=== PATIENT | female | born 2000 | race Caucasian/White ===

== ENCOUNTER → 2018-10-29 | Outpatient (CLI) | payer OTHER ==
--- NOTE | 2018-10-29 15:12 | Diagnostic Imaging Report ---
PROCEDURE: CT abdomen and pelvis without contrast. TECHNIQUE: Multiple contiguous axial images were obtained through the abdomen and pelvis without the use of intravenous contrast. Auto Exposure Controls were utilized during the CT exam to meet ALARA standards for radiation dose reduction. INDICATION: Nausea, vomiting, right flank pain. FINDINGS: There are no opaque kidney stones. There is no hydronephrosis and no perinephric or periureteric edema. There is a small volume of pelvic free fluid at the cul-de-sac a common finding on a physiologic basis in a female patient of this age. There is no adnexal lesion. There is no pericecal edema or inflammatory changes to suggest underlying appendicitis. There is no diverticulitis. There is no bowel obstruction. There is no pneumatosis or free gas. Liver, spleen, adrenals, pancreas, gallbladder all unremarkable. The osseous structures nonacute. IMPRESSION: 1. Unobstructed urinary tracts. No evidence for appendicitis. No bowel, biliary or urinary tract obstruction, inflammatory process or fluid collection. 2. Small volume of cul-de-sac free fluid likely physiologic, no acute or pathological finding of the study is apparent. Dictated by: Dictated on workstation # [id number]
== END ==
LOC: RAD 14:09
PROVIDERS: ATTEND Internal Medicine
DX: R10.9 Unspecified abdominal pain (principal); R11.2 Nausea with vomiting, unspecified
CPT/HCPCS: 74176

== ENCOUNTER → 2018-11-18 | Outpatient (CLI) | payer OTHER ==
--- NOTE | 2018-11-18 12:38 | Diagnostic Imaging Report ---
CLINICAL INDICATION: Patient with enlarged thyroid gland. COMPARISONS: None. FINDINGS: THYROID NODULES: There are a couple hypoechoic nodular areas in the left thyroid gland region with the largest measuring 2 mm. THYROID GLAND: Besides the thyroid nodules, the thyroid gland has normal size, shape and echogenicity. The right lobe measures 3.8 cm x 1.3 cm x 1.4 cm and the left lobe measures 4.0 cm x 0.9 cm x 1.3 cm in their three dimensions. ISTHMUS: The isthmus is unremarkable and measures 3 mm in thickness. IMPRESSION: There are a couple of small hypoechoic nodules involving the left thyroid gland with the largest measuring 2 mm. Otherwise, unremarkable ultrasound of the thyroid gland. Dictated by: Dictated on workstation # [id number]
== END ==
LOC: RAD 07:55
PROVIDERS: ATTEND Nurse Practitioner Family
DX: E04.2 Nontoxic multinodular goiter (principal)
CPT/HCPCS: 76536

== ENCOUNTER 2018-12-01 13:31 | Emergency (ER) | payer OTHER ==
[~2018-12-01] VITALS: Ht 170.2 cm; Wt 56.7 kg
[2018-12-01 13:49] LABS: BILIRUBIN,URINE NEGATIVE (NEGATIVE); CLARITY,URINE SLIGHTLY CLOUDY; COLOR,URINE YELLOW; GLUCOSE, URINE (UA) NEGATIVE (NEGATIVE); KETONES,URINE NEGATIVE (NEGATIVE); LEUKOCYTE ESTERASE ,URINE 3+ (NEGATIVE); NITRITE,URINE NEGATIVE (NEGATIVE); PH,URINE 5 (5-9); PROTEIN,URINE 2+ (NEGATIVE); UROBILINOGEN,URINE NORMAL (NORMAL)
--- OUTSIDE RECORDS SUMMARY | 2018-12-01 14:21 | XMS REPORT | CCD ---
Author Author ANDREE HICKS Organization Unknown Address [address] [facility] [email or web address] [place] [address] Care Team Providers Care Chef De Froid Name Role Phone JASBIR LEONARD MD Allergies Allergy Code Allergy Type Reaction Status No Known Drug Allergies 0 Drug allergy Active Active Medications Unknown or Not Available. Problems Unknown or Not Available. Procedures Procedure Code Procedure Type Date Esophagogastroduodenoscopy, flexible, transoral; [place] biopsy[place] 86697 CPT 12/07/2016 PATHOLOGY ORDER [id number] SNOMED CT 12/07/2016 TEST URINE [id number] SNOMED CT 12/07/2016 Results TEST URINE - Collect Date/Time: 12/07/2016 08:30 Test Name Code Test Result Test Units Test Ref Range TEST UR 2106-3 NEGATIVE N/A Function Status Unknown or Not Available. History of Immunizations Immunization Code Date MMR 03 10/16/1999 MMR 03 03/03/2003 Hep B, adolescent or pediatric 08 1998 Hep B, adolescent or pediatric 08 01/05/1999 Hep B, adolescent or pediatric 08 06/05/1999 IPV 10 01/05/1999 IPV 10 03/20/1999 IPV 10 01/15/2000 IPV 10 03/03/2003 DTaP 20 01/05/1999 DTaP 20 03/20/1999 DTaP 20 06/05/1999 DTaP 20 03/03/2003 varicella 21 10/16/1999 varicella 21 02/15/2011 DTP-Hib 22 01/15/2000 Hib (PRP-OMP) 49 01/05/1999 Hib (PRP-OMP) 49 03/20/1999 Tdap 115 02/15/2011 Pneumococcal Conjugate, unspecified formulation 152 02/19/2001 Pneumococcal Conjugate, unspecified formulation 152 04/23/2001 Plan of Treatment Unknown or Not Available. Social History Smoking Status Code Start Date End Date Never smoker [id number] Vital Signs Vital Sign Value Unit Date/Time Recent/Initial? BMI (Body Mass Index) 18.17 kg/m2 12/05/2016 11:39 Initial VS Weight Measured 116 [lb_av] 12/05/2016 11:39 Initial VS Height 67 [in_i] 12/05/2016 11:39 Initial VS BSA (Body Surface Area) 1.58 m2 12/05/2016 11:39 Initial VS Function Status Unknown or Not Available. Goals Unknown or Not Available. ASSESSMENTS Unknown or Not Available. Health Concerns Section Unknown or Not Available.
--- OUTSIDE RECORDS SUMMARY | 2018-12-01 14:21 | XMS REPORT ---
Author Author Michelle Dia [facility] Address [address] [place], [place] [id number] Care Team Providers Care Lecturer In Marketing Name Role Phone Michelle Dia PCP Unavailable Allergies and Adverse Reactions Name Reaction Notes No known drug allergy Plan of Treatment Not available. Medications Active Name Start Date Estimated Completion Date SIG Comments Ortho Tri-Cyclen (28) 0.18/0.215/0.25 mg-35 mcg (28) oral tablet take 1 tablet by oral route once daily Carafate 1 gram oral tablet take 1 tablet (1 gram) by oral route 4 times per day on an empty stomach 1 hour before meals and at bedtime for 8 weeks Protonix 40 mg oral tablet,delayed release (DR/EC) take 1 tablet (40 mg) by oral route once daily Zofran ODT oral Name Start Date Expiration Date SIG Comments amoxicillin 500 mg oral tablet 11/23/2015 12/03/2015 take 2 tablet by oral route 2 times a day for 10 days prednisone 20 mg oral tablet 11/23/2015 11/30/2015 take 1 tablet (20 mg) by oral route 2 times per day for 7 days Zyrtec 10 mg oral tablet 03/07/2016 05/06/2016 take 1 tablet (10 mg) by oral route once daily for 30 days amoxicillin 500 mg oral capsule 08/08/2016 08/18/2016 take 1 capsule (500 mg) by oral route every 12 hours for 10 days Discontinued Name Start Date Discontinued Date SIG Comments Medrol (Tad) 4 mg oral tablets,dose pack 03/07/2016 08/08/2016 take as directed Protonix 40 mg oral tablet,delayed release (DR/EC) 10/22/2016 11/19/2016 take 1 tablet (40 mg) by oral route once daily for 30 days Zantac 150 mg oral tablet 11/19/2016 01/07/2017 take 1 tablet (150 mg) by oral route 2 times per day for 30 days Problem List Not available. Vital Signs Date Time BP-Sys(mm[Hg] BP-Prachi(mm[Hg]) HR(bpm) RR(rpm) Temp WT HT HC BMI BSA BMI Percentile O2 Sat(%) 01/07/2017 9:31:00 AM 102 mmHg 68 mmHg 90 bpm 20 rpm 97.9 F 123 lbs 68 in 18.70 kg/m2 1.64 m2 14.5 % 100 % 11/27/2016 3:30:00 PM 118 mmHg 62 mmHg 86 bpm 20 rpm 116 lbs 68 in 17.6376 kg/m 1.5889 m 4.2 % 11/19/2016 4:24:00 PM 112 mmHg 66 mmHg 79 bpm 20 rpm 99.3 F 119.5 lbs 68 in 18.17 kg/m2 1.61 m2 9.1 % 100 % 11/05/2016 3:31:00 PM 102 mmHg 62 mmHg 94 bpm 20 rpm 99.4 F 125.5 lbs 68 in 19.082 kg/m 1.6526 m 19.7 % 100 % 10/22/2016 3:26:00 PM 102 mmHg 68 mmHg 81 bpm 20 rpm 99.7 F 121.25 lbs 68 in 18.44 kg/m2 1.62 m2 12.1 % 100 % 08/08/2016 2:36:00 PM 114 mmHg 68 mmHg 63 bpm 16 rpm 97.9 F 125.25 lbs 68 in 19.044 kg/m 1.651 m 20.2 % 99 % 03/07/2016 3:09:00 PM 102 mmHg 79 mmHg 16 rpm 97.9 F 128 lbs 67.5 in 19.75 kg/m2 1.66 m2 31.9 % 100 % 11/23/2015 10:43:00 AM 100 mmHg 60 mmHg 77 bpm 16 rpm 98.5 F 128.2 lbs 67.5 in 19.7824 kg/m 1.6642 m 33.8 % 99 % Social History Name Description Comments Tobacco Never smoker Alcohol Never Denies illicit substance abuse History of Procedures Date Ordered Description Order Status 08/08/2016 3:19 PM STREP A ASSAY W/OPTIC Reviewed 11/05/2016 12:00 AM COMPLETE CBC W/AUTO DIFF WBC Reviewed 11/05/2016 12:00 AM COMPREHEN METABOLIC PANEL Reviewed 11/05/2016 12:00 AM ASSAY THYROID STIM HORMONE Reviewed 11/05/2016 12:00 AM US EXAM OF HEAD AND NECK Reviewed Results Summary Date and Description Results 08/08/2016 3:19 PM STREPTOCOCCUS, GROUP A CULTURE Neg Influenza A Neg Influenza B Neg 11/05/2016 4:25 PM GLUCOSE 103.0 mg/dLSODIUM 140.0 mmol/LPOTASSIUM 3.90 mmol/LCHLORIDE 108.0 mmol/LCO2 21.0 mmol/LBUN 8.0 mg/dLCREATININE 0.80 mg/dLSGOT/AST 16.0 IU/LSGPT/ALT 15.0 IU/LALK PHOS 52.0 IU/LTOTAL PROTEIN 7.10 g/dLALBUMIN 4.10 g/dLTOTAL BILI 0.20 mg/dLCALCIUM 8.90 mg/dLAGE 16 GFR NonAA 93 GFR AA 113 eGFR >60 mL/min/1.73meGFR AA* >60 WBC 7.6 RBC 4.07 HGB 12.30 g/dLHCT 36.60 %MCV 90.0 fLMCH 30.20 pgMCHC 33.60 g/dLRDW SD 40 RDW CV 12.20 %MPV 10.80 fLPLT 213 NRBC# 0.00 NRBC% 0.0 %NEUT 65.70 %%LYMP 16.20 %%MONO 12.30 %%EOS 4.80 %%BASO 0.70 %#NEUT 4.98 #LYMP 1.23 #MONO 0.93 #EOS 0.36 #BASO 0.05 MANUAL DIFF NOT IND TSH 1.890 uIU/mL 12/07/2016 8:30 AM TEST UR NEGATIVE History Of Immunizations Name Date Admin Mfg Name Mf Code Trade Name Lot# Route Inj Vis Given Vis Pub CVX Hib 01/05/1999 Not Entered NE Not Entered Not Entered Not Entered 11/05/2016 07/08/2016 49 Hib 03/20/1999 Not Entered NE Not Entered Not Entered Not Entered 11/05/2016 07/08/2016 49 Hib 01/15/2000 Not Entered NE Not Entered Not Entered Not Entered 11/05/2016 07/08/2016 49 MMR 10/16/1999 Not Entered NE Not Entered Not Entered Not Entered 11/05/2016 07/08/2016 03 MMR 03/03/2003 Not Entered NE Not Entered Not Entered Not Entered 11/05/2016 07/08/2016 03 Varicella 10/16/1999 Not Entered NE Not Entered Not Entered Not Entered 11/05/2016 07/08/2016 21 Varicella 02/15/2011 Not Entered NE Not Entered Not Entered Not Entered 11/05/2016 07/08/2016 21 DTaP 01/05/1999 Not Entered NE Not Entered Not Entered Not Entered 11/05/2016 07/08/2016 20 DTaP 03/20/1999 Not Entered NE Not Entered Not Entered Not Entered 11/05/2016 07/08/2016 20 DTaP 06/05/1999 Not Entered NE Not Entered Not Entered Not Entered 11/05/2016 07/08/2016 20 DTaP 01/15/2000 Not Entered NE Not Entered Not Entered Not Entered 11/05/2016 07/08/2016 120 DTaP 03/03/2003 Not Entered NE Not Entered Not Entered Not Entered 11/05/2016 07/08/2016 20 Tdap 02/15/2011 Not Entered NE Not Entered Not Entered Not Entered 11/05/2016 07/08/2016 115 IPV 01/05/1999 Not Entered NE Not Entered Not Entered Not Entered 11/05/2016 07/08/2016 120 IPV 03/20/1999 Not Entered NE Not Entered Not Entered Not Entered 11/05/2016 07/08/2016 120 IPV 01/15/2000 Not Entered NE Not Entered Not Entered Not Entered 11/05/2016 07/08/2016 120 IPV 03/03/2003 Not Entered NE Not Entered Not Entered Not Entered 11/05/2016 07/08/2016 130 History of Past Illness Name Date of Onset Comments No significant medical history Acute bacterial rhinosinusitis Nov 23 2015 10:44AM Allergic rhinitis Nov 23 2015 10:44AM Tonsil stone Mar 07 2016 3:13PM Seasonal allergies Mar 07 2016 3:13PM Myalgia Aug 08 2016 2:38PM Nasal congestion Aug 08 2016 2:38PM Sore throat Aug 08 2016 2:38PM Tonsillitis Aug 08 2016 2:38PM Sinus infection Aug 08 2016 2:38PM Lymphadenopathy Aug 08 2016 2:38PM Gastroesophageal reflux disease with esophagitis Oct 22 2016 3:34PM Gastroesophageal reflux disease, esophagitis presence not specified Nov 05 2016 3:38PM Thyromegaly Nov 05 2016 3:38PM Thyromegaly Nov 05 2016 3:58PM GERD without esophagitis Nov 05 2016 3:58PM GERD with esophagitis Nov 19 2016 4:30PM Abdominal pain, epigastric Nov 28 2016 8:41AM GERD without esophagitis Jan 07 2017 9:39AM Payers Insurance Name Company Name Plan Name Plan Number Policy Number Policy Group Number Start Date [facility] [id number] N/A History of Encounters Visit Date Visit Type Provider 01/07/2017 Office visit Michelle Dia MD 12/07/2016 [facility] Arnold Pacheco MD 11/27/2016 Office visit Arnold Pacheco MD 11/19/2016 Office visit Michelle Dia MD 11/05/2016 Office visit Michelle Dia MD 10/22/2016 Office visit Michelle Dia MD 08/08/2016 Office visit Herbert Nayak APRN 03/07/2016 Office visit Jenniffer Grullon APRN 11/23/2015 Office visit Izzy Winchester APRN
--- OUTSIDE RECORDS SUMMARY | 2018-12-01 14:21 | XMS REPORT ---
Author Author Herbert Nayak Organization [facility] Address [address] [place], [place] [id number] Care Team Providers Care Credit Risk Analyst Name Role Phone Herbert Nayak PCP Unavailable Allergies and Adverse Reactions Name Reaction Notes No known drug allergy Plan of Treatment Not available. Medications Active Name Start Date Estimated Completion Date SIG Comments Ortho Tri-Cyclen (28) 0.18/0.215/0.25 mg-35 mcg (28) oral tablet take 1 tablet by oral route once daily amoxicillin 500 mg oral capsule 08/08/2016 08/18/2016 take 1 capsule (500 mg) by oral route every 12 hours for 10 days Name Start Date Expiration Date SIG Comments [...] oral route once daily for 30 days Discontinued Name Start Date Discontinued Date SIG Comments Medrol (Tad) 4 mg oral tablets,dose pack 03/07/2016 08/08/2016 take as directed Problem List Not available. Vital Signs Date Time BP-Sys(mm[Hg] BP-Prachi(mm[Hg]) HR(bpm) RR(rpm) Temp WT HT HC BMI BSA BMI Percentile O2 Sat(%) 08/08/2016 2:36:00 PM 114 mmHg 68 mmHg 63 bpm 16 rpm 97.9 F 125.25 lbs 68 in 19.04 kg/m2 1.65 m2 20.2 % 99 % 03/07/2016 3:09:00 PM 102 mmHg 79 mmHg 16 rpm 97.9 F 128 lbs 67.5 in 19.7515 kg/m 1.6629 m 31.9 % 100 % 11/23/2015 10:43:00 AM 100 mmHg 60 mmHg 77 bpm 16 rpm 98.5 F 128.2 lbs 67.5 in 19.78 kg/m2 1.66 m2 33.8 % 99 % Social History Name Description Comments Tobacco Never smoker Alcohol Never Denies illicit substance abuse History of Procedures Date Ordered Description Order Status 08/08/2016 3:19 PM STREP A ASSAY W/OPTIC Reviewed Results Summary Data and Description Results 08/08/2016 3:19 PM STREPTOCOCCUS, GROUP A CULTURE Neg Influenza A Neg Influenza B Neg History Of Immunizations Not available. History of Past Illness Name Date of [...] 2016 2:38PM Lymphadenopathy Aug 08 2016 2:38PM Payers Insurance Name Company Name Plan Name Plan Number Policy Number Policy Group Number Start Date [facility] [id number] N/A History of Encounters Visit Date Visit Type Provider 08/08/2016 Office visit Herbert Nayak MARKETING PROJECT SPECIALIST 03/07/2016 Office visit Jenniffer Grullon MARKETING PROJECT SPECIALIST 11/23/2015 Office visit Izzy Winchester MARKETING PROJECT SPECIALIST
--- OUTSIDE RECORDS SUMMARY | 2018-12-01 14:22 | XMS REPORT ---
Author Author Michelle Dia [facility] Address [address] [place], [place] [phone] Care Team Providers Care Nuisance Wildlife Control Operator Name Role Phone Michelle Dia PCP Unavailable Allergies and Adverse Reactions Name Reaction Notes No known drug allergy Plan of Treatment Planned Activity Comments Planned Date Planned Time Plan/Goal US SOFT TISSUES HEAD AND NECK 11/05/2016 12:00 AM Medications Active Name Start Date Estimated Completion Date SIG Comments Ortho Tri-Cyclen (28) 0.18/0.215/0.25 mg-35 mcg (28) oral tablet take 1 tablet by oral route once daily Protonix 40 mg oral tablet,delayed release (DR/EC) 10/22/2016 02/19/2017 take 1 tablet (40 mg) by oral route once daily for 30 days Name Start Date Expiration Date SIG [...] HC BMI BSA BMI Percentile O2 Sat(%) 11/05/2016 3:31:00 PM 102 mmHg 62 mmHg 94 bpm 20 rpm 99.4 F 125.5 lbs 68 in 19.08 kg/m2 1.65 m2 19.7 % 100 % 10/22/2016 3:26:00 PM 102 mmHg 68 mmHg 81 bpm 20 rpm 99.7 F 121.25 lbs 68 in 18.4358 kg/m 1.6244 m 12.1 % 100 % 08/08/2016 2:36:00 PM [...] Neg Influenza B Neg History Of Immunizations Name Date Admin Mfg Name Mfg Code Trade Name Lot# Route Inj Vis [...] 2016 3:38PM Thyromegaly Nov 05 2016 3:38PM Payers Insurance Name Company Name Plan Name Plan Number Policy Number Policy Group Number Start Date [facility] [id number] N/A History of Encounters Visit Date Visit Type Provider 11/05/2016 Office visit Michelle Dia MD 10/22/2016 Office visit Michelle Dia MD 08/08/2016 Office visit Herbert Nayak SHIFT LAB TECHNICIAN 03/07/2016 Office visit Jenniffer Grullon SHIFT LAB TECHNICIAN 11/23/2015 Office visit Izzy Winchester SHIFT LAB TECHNICIAN
--- OUTSIDE RECORDS SUMMARY | 2018-12-01 14:22 | XMS REPORT ---
Author Author Michelle Dia [facility] Address [address] [place], [place] [phone] Care Team Providers Care Software Sales Executive Name Role Phone Michelle Dia PCP Michelle Dia Unavailable Unavailable Allergies and Adverse Reactions Name Reaction Notes No known drug allergy Plan of Treatment Not available. Medications Active Name Start Date Estimated Completion Date SIG Comments Ortho Tri-Cyclen (28) 0.18/0.215/0.25 mg-35 mcg (28) oral tablet take 1 tablet by oral route once daily Name Start Date Expiration Date SIG Comments [...] 2 times per day for 30 days Zofran ODT oral 09/16/2017 sucralfate 1 gram oral tablet 02/04/2017 04/09/2017 TAKE ONE TABLET BY MOUTH BEFORE MEAL(S) AND AT BEDTIME DISSOLVE IN WATER amoxicillin 500 mg oral capsule 03/13/2017 04/09/2017 take 1 capsule (500 mg) by oral route every 12 hours for 10 days prednisone 50 mg oral tablet 03/13/2017 04/09/2017 take 1 tablet (50 mg) by oral route once daily for 3 days Carafate 1 gram oral tablet 04/09/2017 09/16/2017 take 1 tablet (1 gram) by oral route 4 times per day on an empty stomach 1 hour before meals and at bedtime for 8 weeks Protonix 40 mg oral tablet,delayed release (DR/EC) 04/09/2017 09/16/2017 take 1 tablet (40 mg) by oral route once daily for 30 days Problem List Description Status Onset Gastritis determined by endoscopy Active GERD (gastroesophageal reflux disease) Active Vital Signs Date Time BP-Sys(mm[Hg] BP-Prachi(mm[Hg]) HR(bpm) RR(rpm) Temp WT HT HC BMI BSA BMI Percentile O2 Sat(%) 09/16/2017 11:44:00 AM 112 mmHg 68 mmHg 92 bpm 20 rpm 97.3 F 130.375 lbs 68 in 19.82 kg/m2 1.68 m2 26.9 % 100 % 04/09/2017 1:44:00 PM 108 mmHg 62 mmHg 78 bpm 20 rpm 98.7 F 131.5 lbs 68 in 19.9943 kg/m 1.6917 m 30.5 % 100 % 03/13/2017 11:39:00 AM 116 mmHg 60 mmHg 108 bpm 16 rpm 101.6 F 128.25 lbs 68 in 19.50 kg/m2 1.67 m2 24 % 100 % 02/04/2017 9:33:00 AM 94 mmHg 68 mmHg 99 bpm 18 rpm 98.1 F 124.125 lbs 68 in 18.8729 kg/m 1.6436 m 16.3 % 95 % 01/07/2017 9:31:00 AM 102 mmHg 68 mmHg [...] US EXAM OF HEAD AND NECK Reviewed 02/04/2017 12:00 AM Sports Physical, New and Established Reviewed 03/13/2017 11:47 AM STREP A ASSAY W/OPTIC Reviewed 09/16/2017 12:00 AM X-RAY EXAM L-S SPINE 2 VWS Returned Results Summary Date and Description Results 08/08/2016 [...] MANUAL DIFF NOT IND TSH 1.890 uIU/mL 03/13/2017 11:47 AM STREPTOCOCCUS, GROUP A CULTURE Positive History Of Immunizations Name Date Admin Mfg Name Mfg Code Trade Name Lot# Route Inj Vis Given Vis Pub CVX Hib 01/05/1999 Not Entered NE Not Entered Not Entered Not Entered 11/05/2016 07/08/2017 49 Hib 03/20/1999 Not Entered NE Not Entered Not Entered Not Entered 11/05/2016 07/08/2017 49 Hib 01/15/2000 Not Entered NE Not Entered Not Entered Not Entered 11/05/2016 07/08/2017 49 MMR 10/16/1999 Not Entered NE Not Entered Not Entered Not Entered 11/05/2016 07/08/2017 03 MMR 03/03/2003 Not Entered NE Not Entered Not Entered Not Entered 11/05/2016 07/08/2017 03 Varicella 10/16/1999 Not Entered NE Not Entered Not Entered Not Entered 11/05/2016 07/08/2017 21 Varicella 02/15/2011 Not Entered NE Not Entered Not Entered Not Entered 11/05/2016 07/08/2017 21 DTaP 01/05/1999 Not Entered NE Not Entered Not Entered Not Entered 11/05/2016 07/08/2017 20 DTaP 03/20/1999 Not Entered NE Not Entered Not Entered Not Entered 11/05/2016 07/08/2017 20 DTaP 06/05/1999 Not Entered NE Not Entered Not Entered Not Entered 11/05/2016 07/08/2017 20 DTaP 01/15/2000 Not Entered NE Not Entered Not Entered Not Entered 11/05/2016 07/08/2017 120 DTaP 03/03/2003 Not Entered NE Not Entered Not Entered Not Entered 11/05/2016 07/08/2017 20 Tdap 02/15/2011 Not Entered NE Not Entered Not Entered Not Entered 11/05/2016 07/08/2017 115 IPV 01/05/1999 Not Entered NE Not Entered Not Entered Not Entered 11/05/2016 07/08/2017 120 IPV 03/20/1999 Not Entered NE Not Entered Not Entered Not Entered 11/05/2016 07/08/2017 120 IPV 01/15/2000 Not Entered NE Not Entered Not Entered Not Entered 11/05/2016 07/08/2017 120 IPV 03/03/2003 Not Entered NE Not Entered Not Entered Not Entered 11/05/2016 07/08/2017 130 History of Past Illness Name Date of Onset Comments Gastritis determined by endoscopy GERD (gastroesophageal reflux disease) Acute bacterial rhinosinusitis Nov 23 2015 10:44AM [...] GERD without esophagitis Jan 07 2017 9:39AM Encounter for sports participation examination Feb 04 2017 9:45AM Strep tonsillitis Mar 13 2017 11:47AM Sore throat Mar 13 2017 11:47AM Headache Mar 13 2017 11:47AM Myalgia Mar 13 2017 11:47AM Otalgia of both ears Mar 13 2017 11:47AM Gastritis determined by endoscopy Apr 09 2017 1:50PM GERD (gastroesophageal reflux disease) Apr 09 2017 1:50PM Sciatica of right side Sep 16 2017 11:50AM Payers Insurance Name Company Name Plan Name Plan Number Policy Number Policy Group Number Start Date [facility] [id number] N/A History of Encounters Visit Date Visit Type Provider 09/16/2017 Office visit Michelle Dia MD 04/09/2017 Office visit Michelle Dia MD 03/13/2017 Office visit Herbert Nayak APRN 02/04/2017 Office visit Izzy Winchester APRN 01/07/2017 Office visit Michelle Dia MD 12/07/2016 [facility] Arnold Pacheco MD 11/27/2016 Office visit Arnold Pacheco MD 11/19/2016 Office visit Michelle Dia MD 11/05/2016 Office visit Michelle Dia MD 10/22/2016 Office visit Michelle Dia MD 08/08/2016 Office visit Herebrt Nayak APRN 03/07/2016 Office visit Jenniffer Grullon APRN 11/23/2015 Office visit Izzy Winchester APRN
--- OUTSIDE RECORDS SUMMARY | 2018-12-01 14:22 | XMS REPORT ---
Author Author Michelle Dia [facility] Address [address] [place], [place] [phone] Care Team Providers Care Supervisor Blueprinting And Photocopy Name Role Phone Michelle Dia PCP Unavailable Allergies and Adverse Reactions Name Reaction Notes No known drug allergy Plan of Treatment Not available. Medications Active Name Start Date Estimated Completion Date SIG Comments Ortho Tri-Cyclen (28) 0.18/0.215/0.25 mg-35 mcg (28) oral tablet take 1 tablet by oral route once daily Zantac 150 mg oral tablet 11/19/2016 02/17/2017 take 1 tablet (150 mg) by oral route 2 times per day for 30 days Name Start Date Expiration [...] once daily for 30 days Problem List Not available. Vital Signs Date Time BP-Sys(mm[Hg] BP-Prachi(mm[Hg]) HR(bpm) RR(rpm) Temp WT HT HC BMI BSA BMI Percentile O2 Sat(%) 11/19/2016 4:24:00 PM 112 mmHg 66 mmHg [...] MANUAL DIFF NOT IND TSH 1.890 uIU/mL History Of Immunizations Name Date Admin Mfg [...] GERD with esophagitis Nov 19 2016 4:30PM Payers Insurance Name Company Name Plan Name Plan Number Policy Number Policy Group Number Start Date [facility] [id number] N/A History of Encounters Visit Date Visit Type Provider 11/19/2016 Office visit Michelle Dia MD 11/05/2016 Office visit Michelle Dia MD 10/22/2016 Office visit Michelle Dia MD 08/08/2016 Office visit Herbert Nayak SPINDLE SANDER 03/07/2016 Office visit Jenniffer Grullon SPINDLE SANDER 11/23/2015 Office visit Izzy Winchester SPINDLE SANDER
--- OUTSIDE RECORDS SUMMARY | 2018-12-01 14:22 | XMS REPORT ---
Author Author Michelle Dia [facility] Address [address] [place], [place] [phone] Care Team Providers Care Scientific Technical Writer Name Role Phone Michelle Dia PCP Unavailable [...] OF HEAD AND NECK Reviewed Results Summary Data and Description Results [...] GERD without esophagitis Nov 05 2016 3:58PM Payers Insurance Name Company Name Plan Name Plan Number Policy Number Policy Group Number Start Date [facility] [id number] N/A History of Encounters Visit Date Visit Type Provider 11/05/2016 Office visit Michelle Dia MD 10/22/2016 Office visit Michelle Dia MD 08/08/2016 Office visit Herbert Nayak APRN 03/07/2016 Office visit Jenniffer Grullon APRN 11/23/2015 Office visit Izzy Winchester TELEPHONE SWITCHBOARD OPERATOR
--- OUTSIDE RECORDS SUMMARY | 2018-12-01 14:22 | XMS REPORT ---
Author Author Michelle Dia [facility] Address [address] [place], [place] [id number] Care Team Providers Care Flying Teacher Name Role Phone Michelle Dia PCP Unavailable [...] HC BMI BSA BMI Percentile O2 Sat(%) 10/22/2016 3:26:00 PM 102 mmHg 68 mmHg [...] disease with esophagitis Oct 22 2016 3:34PM Payers Insurance Name Company Name Plan Name Plan Number Policy Number Policy Group Number Start Date [facility] [id number] N/A History of Encounters Visit Date Visit Type Provider 10/22/2016 Office visit Michelle Dia MD 08/08/2016 Office visit Herbert Nayak APRN 03/07/2016 Office visit Jenniffer Grullon APRN 11/23/2015 Office visit Izzy Winchester APRN
--- OUTSIDE RECORDS SUMMARY | 2018-12-01 14:23 | XMS REPORT ---
Author Author Michelle Dia [facility] Address [address] [place], [place] [address] Care Team Providers Care Architectural Practice Manager Name Role Phone Michelle Dia PCP Unavailable Allergies and Adverse Reactions Name Reaction Notes No known drug allergy Plan of Treatment Planned Activity Comments Planned Date Planned Time Plan/Goal US SOFT TISSUES HEAD AND NECK 11/05/2016 12:00 AM CBC W/ AUTO DIFF (RFLX MAN DIFF IF IND). 11/05/2016 12:00 AM COMPREHENSIVE METABOLIC PANEL 11/05/2016 12:00 AM TSH 11/05/2016 12:00 AM Medications Active Name Start [...] Policy Number Policy Group Number Start Date [facility] [id number] N/A History of Encounters Visit Date Visit Type Provider 11/05/2016 Office visit Michelle Dia MD 10/22/2016 Office visit Michelle Dia MD 08/08/2016 Office visit Herbert Nayak APRN 03/07/2016 Office visit Jenniffer Grullon FILM EXAMINER 11/23/2015 Office visit Izzy Winchester APRN
--- OUTSIDE RECORDS SUMMARY | 2018-12-01 14:23 | XMS REPORT ---
Author Author Izzy Winchester [facility] Address [address] [place], [place] [address] Care Team Providers Care Bottle Capper Name Role Phone Izzy Winchester PCP Unavailable Allergies and Adverse Reactions Name Reaction Notes No known drug allergy Plan of Treatment Not available. Medications Active Name Start Date Estimated Completion Date SIG Comments Ortho Tri-Cyclen (28) 0.18/0.215/0.25 mg-35 mcg (28) oral tablet take 1 tablet by oral route once daily amoxicillin 500 mg oral tablet 11/23/2015 12/03/2015 take 2 tablet by oral route 2 times a day for 10 days prednisone 20 mg oral tablet 11/23/2015 11/30/2015 take 1 tablet (20 mg) by oral route 2 times per day for 7 days Problem List Not available. Vital Signs Date Time BP-Sys(mm[Hg] BP-Prachi(mm[Hg]) HR(bpm) RR(rpm) Temp WT HT HC BMI BSA BMI Percentile O2 Sat(%) 11/23/2015 10:43:00 AM 100 mmHg 60 mmHg 77 bpm 16 rpm 98.5 F 128.2 lbs 67.5 in 19.78 kg/m2 1.66 m2 33.8 % 99 % Social History Name Description Comments Tobacco Never smoker Alcohol Never Denies illicit substance abuse History of Procedures Not available. Results Summary Not available. History Of Immunizations Not available. History of Past Illness Name Date of Onset Comments No significant medical history Acute bacterial rhinosinusitis Nov 23 2015 10:44AM Allergic rhinitis Nov 23 2015 10:44AM Payers Insurance Name Company Name Plan Name Plan Number Policy Number Policy Group Number Start Date [facility] [id number] N/A History of Encounters Visit Date Visit Type Provider 11/23/2015 Office visit Izzy Winchester REACHER
--- OUTSIDE RECORDS SUMMARY | 2018-12-01 14:23 | XMS REPORT ---
Author Author Michelle Dia [facility] Address [address] [place], [place] [id number] Care Team Providers Care Facilities Maintenance Assistant Name Role Phone Michelle Dia PCP Unavailable [...] Policy Group Number Start Date [facility] [id number] N/A History of Encounters Visit Date Visit Type Provider 10/22/2016 Office visit Michelle Dia MD 08/08/2016 Office visit Herbert Nayak APRN 03/07/2016 Office visit Jenniffer Grullon APRN 11/23/2015 Office visit Izzy Winchester APRN
--- OUTSIDE RECORDS SUMMARY | 2018-12-01 14:23 | XMS REPORT ---
Author Author Arnold Pacheco [facility] Address [address] [place], [place] [phone] Care Team Providers Care Superannuation Clerk Name Role Phone Arnold Pacheco PCP Unavailable Allergies and Adverse Reactions Name [...] HC BMI BSA BMI Percentile O2 Sat(%) 11/27/2016 3:30:00 PM 118 mmHg 62 mmHg 86 bpm 20 rpm 116 lbs 68 in 17.64 kg/m2 1.59 m2 4.2 % 11/19/2016 4:24:00 PM 112 mmHg 66 mmHg 79 bpm 20 rpm 99.3 F 119.5 lbs 68 in 18.1697 kg/m 1.6126 m 9.1 % 100 % 11/05/2016 3:31:00 PM [...] Abdominal pain, epigastric Nov 28 2016 8:41AM Payers Insurance Name Company Name Plan Name Plan Number Policy Number Policy Group Number Start Date [facility] [id number] N/A History of Encounters Visit Date Visit Type Provider 11/27/2016 Office visit Arnold Pacheco MD 11/19/2016 Office visit Michelle Dia MD 11/05/2016 Office visit Michelle Dia MD 10/22/2016 Office visit Michelle Dia MD 08/08/2016 Office visit Herbert Nayak RN URGENT CARE 03/07/2016 Office visit Jenniffer Grullon APRN 11/23/2015 Office visit Izzy Winchester APRN
--- OUTSIDE RECORDS SUMMARY | 2018-12-01 14:24 | XMS REPORT ---
Author Author Michelle Dia [facility] Address [address] [place], [place] [id number] Care Team Providers Care Registered Travel Nurse Name Role Phone Michelle Dia PCP Unavailable Michelle Dia Unavailable Allergies and Adverse Reactions Name Reaction Notes No known drug allergy Plan of Treatment Not available. Medications Active Name Start Date Estimated Completion Date SIG Comments Ortho Tri-Cyclen (28) 0.18/0.215/0.25 mg-35 mcg (28) oral tablet take 1 tablet by oral route once daily Zofran ODT oral Carafate 1 gram oral tablet 04/09/2017 take 1 tablet (1 gram) by oral route 4 times per day on an empty stomach 1 hour before meals and at bedtime for 8 weeks Protonix 40 mg oral tablet,delayed release (DR/EC) 04/09/2017 take 1 tablet (40 mg) by oral [...] 2 times per day for 30 days sucralfate 1 gram oral tablet 02/04/2017 04/09/2017 TAKE ONE TABLET BY MOUTH BEFORE MEAL(S) AND AT BEDTIME DISSOLVE IN WATER amoxicillin 500 mg oral capsule 03/13/2017 04/09/2017 take 1 capsule (500 mg) by oral route every 12 hours for 10 days prednisone 50 mg oral tablet 03/13/2017 04/09/2017 take 1 tablet (50 mg) by oral route once daily for 3 days Problem List Description Status Onset Gastritis determined by endoscopy Active GERD (gastroesophageal reflux disease) Active Vital Signs Date Time BP-Sys(mm[Hg] BP-Prachi(mm[Hg]) HR(bpm) RR(rpm) Temp WT HT HC BMI BSA BMI Percentile O2 Sat(%) 04/09/2017 1:44:00 PM 108 mmHg 62 mmHg 78 bpm 20 rpm 98.7 F 131.5 lbs 68 in 19.99 kg/m2 1.69 m2 30.5 % 100 % 03/13/2017 11:39:00 AM 116 mmHg 60 mmHg 108 bpm 16 rpm 101.6 F 128.25 lbs 68 in 19.5001 kg/m 1.6706 m 24 % 100 % 02/04/2017 9:33:00 AM 94 mmHg 68 mmHg 99 bpm 18 rpm 98.1 F 124.125 lbs 68 in 18.87 kg/m2 1.64 m2 16.3 % 95 % 01/07/2017 9:31:00 AM 102 mmHg 68 mmHg 90 bpm 20 rpm 97.9 F 123 lbs 68 in 18.7019 kg/m 1.6361 m 14.5 % 100 % 11/27/2016 3:30:00 PM [...] 11:47 AM STREP A ASSAY W/OPTIC Reviewed Results Summary Date and Description Results [...] (gastroesophageal reflux disease) Apr 09 2017 1:50PM Payers Insurance Name Company Name Plan Name Plan Number Policy Number Policy Group Number Start Date [facility] [id number] N/A History of Encounters Visit Date Visit Type Provider 04/09/2017 Office visit Michelle Dia MD 03/13/2017 Office visit Herbert Nayak APRN 02/04/2017 Office visit Izzy Winchester UNIFORM ROOM ATTENDANT 01/07/2017 Office visit Michelle Dia MD 12/07/2016 [facility] Arnold Pacheco MD 11/27/2016 Office visit Arnold Pacheco MD 11/19/2016 Office visit Michelle Dia MD 11/05/2016 Office visit Michelle Dia MD 10/22/2016 Office visit Michelle Dia MD 08/08/2016 Office visit Herbert Nayak UNIFORM ROOM ATTENDANT 03/07/2016 Office visit Jenniffer Grullon UNIFORM ROOM ATTENDANT 11/23/2015 Office visit Izzy Winchester APRN
--- OUTSIDE RECORDS SUMMARY | 2018-12-01 14:24 | XMS REPORT ---
Author Author Herbert Nayak Organization [facility] Address [address] [place], [place] [phone] Care Team Providers Care Retention Manager Name Role Phone Herbert Nayak PCP Unavailable Michelle Dia Unavailable Unavailable Allergies and Adverse [...] ODT oral Carafate 1 gram oral tablet 02/01/2017 05/24/2017 take 1 tablet (1 gram) by oral route 4 times per day on an empty stomach 1 hour before meals and at bedtime for 8 weeks sucralfate 1 gram oral tablet 02/04/2017 TAKE ONE TABLET BY MOUTH BEFORE MEAL(S) AND AT BEDTIME DISSOLVE IN WATER amoxicillin 500 mg oral capsule 03/13/2017 take 1 capsule (500 mg) by oral route every 12 hours for 10 days prednisone 50 mg oral tablet 03/13/2017 take 1 tablet (50 mg) by oral route once daily for 3 days Name Start Date Expiration Date SIG [...] per day for 30 days Problem List Description Status Onset Gastritis determined by endoscopy Active GERD (gastroesophageal reflux disease) Active Vital Signs Date Time BP-Sys(mm[Hg] BP-Prachi(mm[Hg]) HR(bpm) RR(rpm) Temp WT HT HC BMI BSA BMI Percentile O2 Sat(%) 03/13/2017 11:39:00 AM 116 mmHg 60 mmHg [...] of both ears Mar 13 2017 11:47AM Payers Insurance Name Company Name Plan Name Plan Number Policy Number Policy Group Number Start Date [facility] [id number] N/A History of Encounters Visit Date Visit Type Provider 03/13/2017 Office visit Herbert Nayak PHYS ASST 02/04/2017 Office visit Izzy Winchester PHYS ASST 01/07/2017 Office visit Michelle Dia MD 12/07/2016 [facility] Arnold Pacheco MD 11/27/2016 Office visit Arnold Pacheco MD 11/19/2016 Office visit Michelle Dia MD 11/05/2016 Office visit Michelle Dia MD 10/22/2016 Office visit Michelle Dia MD 08/08/2016 Office visit Herbert Nayak PHYS ASST 03/07/2016 Office visit Jenniffer Grullon APRN 11/23/2015 Office visit Izzy Winchester APRN
--- OUTSIDE RECORDS SUMMARY | 2018-12-01 14:25 | XMS REPORT ---
Author Author Michelle Dia [facility] Address [address] [place], [place] [phone] Care Team Providers Care Senior Health Educator Name Role Phone Michelle Dia PCP Unavailable [...] A ASSAY W/OPTIC Reviewed 11/05/2016 12:00 AM US EXAM OF HEAD AND NECK Returned 11/05/2016 12:00 AM COMPLETE CBC W/AUTO DIFF WBC Reviewed 11/05/2016 12:00 AM COMPREHEN METABOLIC PANEL Reviewed 11/05/2016 12:00 AM ASSAY THYROID STIM HORMONE Reviewed Results Summary Data and Description Results [...] Policy Number Policy Group Number Start Date [facility] [id number] N/A History of Encounters Visit Date Visit Type Provider 11/05/2016 Office visit Michelle Dia MD 10/22/2016 Office visit Michelle Dia MD 08/08/2016 Office visit Herbert Nayak APRN 03/07/2016 Office visit Jenniffer Grullon APRN 11/23/2015 Office visit Izzy Winchester ESTATE MANAGER
--- OUTSIDE RECORDS SUMMARY | 2018-12-01 14:25 | XMS REPORT ---
Author Author Jenniffer Grullon [facility] Address [address] [place], [place] [address] Care Team Providers Care Animal Care Service Worker Name Role Phone Jenniffer Grullon PCP Unavailable Allergies and Adverse Reactions Name Reaction Notes No known drug allergy Plan of Treatment Not available. Medications Active Name Start Date Estimated Completion Date SIG Comments Ortho Tri-Cyclen (28) 0.18/0.215/0.25 mg-35 mcg (28) oral tablet take 1 tablet by oral route once daily Zyrtec 10 mg oral tablet 03/07/2016 05/06/2016 take 1 tablet (10 mg) by oral route once daily for 30 days Medrol (Tad) 4 mg oral tablets,dose pack 03/07/2016 take as directed Name Start Date Expiration Date SIG Comments [...] HC BMI BSA BMI Percentile O2 Sat(%) 03/07/2016 3:09:00 PM 102 mmHg 79 mmHg [...] 3:13PM Seasonal allergies Mar 07 2016 3:13PM Payers Insurance Name Company Name Plan Name Plan Number Policy Number Policy Group Number Start Date [facility] [id number] N/A History of Encounters Visit Date Visit Type Provider 03/07/2016 Office visit Jenniffer Grullon APRN 11/23/2015 Office visit Izzy Winchester APRN
--- OUTSIDE RECORDS SUMMARY | 2018-12-01 14:25 | XMS REPORT ---
Author Author Michelle Dia [facility] Address [address] [place], [place] [address] Care Team Providers Care Deicer Inspector Electric Name Role Phone Michelle Dia PCP Michelle Dia Unavailable Unavailable Allergies and Adverse Reactions Name Reaction Notes No known drug allergy Plan of Treatment Planned Activity Comments Planned Date Planned Time Plan/Goal Lumbar Spine 2-3 Views - Main 09/16/2017 12:00 AM Medications Active Name Start Date [...] Policy Number Policy Group Number Start Date [facility] [id number] N/A History of Encounters Visit Date Visit Type Provider 09/16/2017 Office visit Michelle Dia MD 04/09/2017 Office visit Michelle Dia MD 03/13/2017 Office visit Herbert Nayak APRN 02/04/2017 Office visit Izzy Winchester APRN 01/07/2017 Office visit Michelle Dia MD 12/07/2016 [facility] Arnold Pacheco MD 11/27/2016 Office visit Arnold Pacheco MD 11/19/2016 Office visit Michelle Dia MD 11/05/2016 Office visit Michelle Dia MD 10/22/2016 Office visit Michelle Dia MD 08/08/2016 Office visit Herbert Nayak APRN 03/07/2016 Office visit Jenniffer Grullon APRN 11/23/2015 Office visit Izzy Winchester APRN
--- OUTSIDE RECORDS SUMMARY | 2018-12-01 14:26 | XMS REPORT | Continuity of Care Document ---
Author Author [facility] Organization [facility] Address [facility] [address] [place] [address] Phone Unavailable Support Name Relationship Address Phone VIRA CHAMPION D.O. Caregiver [address] [place] [address] ZAMZAM GUILLEN MD Caregiver [address] [place] [address] Unavailable SARAH FELIPE Next Of Kin [address] [place], [place] [address] Insurance Providers Payer Name Policy Number Subscriber Name Relationship [facility] [id number] Cornell Jarvis 31 Father Advance Directives Directive Response Recorded Date/Time Do you have an Advanced Directive? No 04/01/07 9:18am Advance Directives No 08/14/16 7:30pm Living Will No 08/14/16 7:30pm Health Care Proxy No 08/14/16 7:30pm Power of Heavy Equipment Sales Manager for Health Care No 08/14/16 7:30pm Organ, Tissue, or Eye Donor No 08/14/16 7:30pm Do you have a signed organ donor card? No 08/14/16 7:30pm Chief Complaint and Reason for Visit Chief Complaint SHOULDER INJURY Reason for Visit [id number] Problems Active Problems Medical Problem Onset Date Status Acromioclavicular sprain Unknown Acute Medications Current Home Medications Medication Dose Units Route Directions Days/Qty Instructions Start Date Acetaminophen/Hydrocodone Bitart 1 Tab 1 - 2 Tab Oral Every 4-6 Hrs As Needed Pain 30 12/22/12 Social History Social History Problem Response Recorded Date/Time Smoking Status Never smoker 12/22/2012 9:06pm Query Response Start Date Stop Date Smoking Status Never smoker Hospital Discharge Instructions No hospital discharge instructions. Plan of Care Discharge Date 08/14/16 9:10pm Condition at Discharge Stable Instructions/Education Provided Acromioclavicular Separation (ED) Prescriptions See Medication Section Referrals CHAMPIONVIRA CASTILLO D.O., KALAPURAKKAL SUNIL M.D. - 1 Week Functional Status Query Response Date Recorded Rosalio Coma Scale Total 15 August 14, 2016 7:40pm Patient Behavior Cooperative August 14, 2016 7:40pm Allergies, Adverse Reactions, Alerts Allergen Type Severity Reaction Status Last Updated NO KNOWN ALLERGIES Allergy Unknown Active 08/15/16 Immunizations Name Given Type Hx Diphtheria, Pertussis, Tetanus Vaccination Up To Date Historical Hx Influenza Vaccination No Historical Hx Pneumococcal Vaccination No Historical Vital Signs Acute Vital Signs Vital Response Date/Time Temperature (Fahrenheit) 98.6 degrees F (97.6 - 99.5) 08/14/2016 9:02pm Temperature Source Temporal Artery 08/14/2016 9:02pm Pulse Rate (adult) 75 bpm (60 - 90) 08/14/2016 9:02pm Respiratory Rate 18 bpm (12 - 24) 08/14/2016 9:02pm Blood Pressure 126/75 mm Hg 08/14/2016 9:02pm O2 Sat by Pulse Oximetry 100 % (90 - 100) 08/14/2016 9:02pm Oxygen Delivery Method 08/14/2016 9:02pm Pain Location Body Site Modifier 08/14/2016 9:00pm Pain Description 08/14/2016 9:00pm Height 5 ft 7 in Weight 125 lb Body Mass Index 19.0 kg/m^2 Results No known relevant diagnostic tests, laboratory data and/or discharge summary. Procedures Procedure Status Date Provider(s) X-ray of left shoulder, two or more views Completed 08/14/16 ZAMZAM GUILLEN MD Encounters Encounter Location Arrival/Admit Date Discharge/Depart Date Attending Provider Departed Emergency Room [place] 08/14/16 7:18pm 08/14/16 9:10pm ZAMZAM GUILLEN MD Recent Diagnosis
--- OUTSIDE RECORDS SUMMARY | 2018-12-01 14:26 | XMS REPORT ---
Author Author KIRSTEN PALACIOS Organization [employer] Address Unknown Phone Unavailable Care Team Providers Care Financial Specialist Name Role Phone KIRSTEN PALACIOS CP Unavailable Allergies, Adverse Reactions, Alerts Substance Reaction Event Type N.K.D.A. Info Not Available Non Drug Allergy Problems Problem Type Condition Code Onset Dates Condition Status Assessment Sports physical V70.3 Active Medications No Known Medications Procedures Procedure Coding System Code Date Preventive Care New Pt. Age 12-17 CPT-4 38801 Feb 05, 2015 Vital Signs Date/Time: Feb 05, 2015 Temperature 98.1 F BMIPercentile 37.58 % Weight 122 lbs Height 66 in BMI 19.69 Index Blood Pressure Diastolic 72 mmHg Blood Pressure Systolic 110 mmHg Cardiac Monitoring Heart Rate 76 bpm Wt Percentile 54.27 % Ht Percentile 77.74 % Results No Known Results Summary Purpose [employer] Submission
--- OUTSIDE RECORDS SUMMARY | 2018-12-01 14:26 | XMS REPORT ---
Author Author ELISE VINCENT [facility] Address [address] [place] [address] Care Team Providers Care Health And Safety Specialist Name Role Phone ELISE VINCENT Unavailable PROBLEMS No Known Problems ALLERGIES No Known Allergies ENCOUNTERS Encounter Location Date Diagnosis [facility] [id number] [address] Jun, Fever, unspecified fever cause R50.9 and Acute tonsillitis, unspecified etiology J03.90 [facility] [id number] [address] Jan, Routine sports physical exam Z02.5 [facility] [id number] [address] Feb, Sports physical V70.3 IMMUNIZATIONS No Known Immunizations SOCIAL HISTORY Never Assessed REASON FOR VISIT Sore throat, chills, body aches started this afternoon JStrasserRN PLAN OF CARE Activity Details Follow Up if not improving with PCP or reg follow up Reason: VITAL SIGNS Height 68 in 2018-06-21 Weight 128.4 lbs 2018-06-21 Temperature 100.6 degrees Fahrenheit 2018-06-21 Heart Rate 120 bpm 2018-06-21 Respiratory Rate 18 2018-06-21 BMI 19.52 kg/m2 2018-06-21 Blood pressure systolic 120 mmHg 2018-06-21 Blood pressure diastolic 80 mmHg 2018-06-21 MEDICATIONS Medication Instructions Dosage Frequency Start Date End Date Duration Status Amoxicillin 500 mg Orally every 8 hrs 1 tablet 8h 15 Jun, 2018 10 day(s) Active Sprintec 28 0.25-35 MG-MCG Orally Once a day 1 tablet 24h 28 day(s) Active Tylenol 8 Hour 650 MG Orally every 8 hrs 2 tablets as needed 8h Active RESULTS Name Result Date Reference Range INFLUENZA A & B (IN HOUSE) 2018-06-21 INFLUENZA A negative INFLUENZA B negative Control + Lot # [id number] Exp date 2020-08-15 STREP A (IN HOUSE) 2018-06-21 STREP A negative Control + Lot # [id number] Exp date 2018-12-05 PROCEDURES Procedure Date Ordered Result Body Site STREP A ASSAY W/OPTIC Jun 21, 2018 INFLUENZA ASSAY W/OPTIC Jun 21, 2018 INSTRUCTIONS MEDICATIONS ADMINISTERED No Known Medications MEDICAL (GENERAL) HISTORY Type Description Date Medical History L knee, torn meniscus Medical History R wrist fracture Medical History L shoulder AC separation Surgical History No know Surgical history
--- OUTSIDE RECORDS SUMMARY | 2018-12-01 14:26 | XMS REPORT ---
Author Author CJ MCCORD Organization [employer] Address Unknown Phone Unavailable Care Team Providers Care Potato Pancake Frier Name Role Phone CJ MCCORD CP Unavailable Allergies, Adverse Reactions, Alerts Substance Reaction Event Type N.K.D.A. Info Not Available Non Drug Allergy Problems Problem Type Condition Code Onset Dates Condition Status Assessment Routine sports physical exam Z02.5 Active Medications No Known Medications Procedures Procedure Coding System Code Date Office Visit, Est Pt., Level 3 CPT-4 75022 February 04, 2016 Vital Signs Date/Time: February 04, 2016 Cardiac Monitoring Heart Rate 70 bpm Weight 124 lbs Height 68 in Ht Percentile 93.36 % BMI 18.85 Index Blood Pressure Diastolic 70 mmHg Blood Pressure Systolic 112 mmHg BMIPercentile 20.1 % Wt Percentile 53.33 % Results No Known Results Summary Purpose [employer] Submission
--- OUTSIDE RECORDS SUMMARY | 2018-12-01 14:26 | XMS REPORT | Continuity of Care Document ---
Author Organization Unknown Address Unknown Allergies There is no data. Medications There is no data. Problems Date Dx Coded Attending Type Code Diagnosis Diagnosed By 10/29/2018 ZEUS BEAL MD Ot R10.9 UNSPECIFIED ABDOMINAL PAIN 10/29/2018 ZEUS BEAL MD Ot R11.2 NAUSEA WITH VOMITING, UNSPECIFIED 11/04/2018 ZEUS BEAL MD Ot R10.9 UNSPECIFIED ABDOMINAL PAIN 11/04/2018 ZEUS BEAL MD Ot R11.2 NAUSEA WITH VOMITING, UNSPECIFIED 11/17/2018 ZEUS BEAL MD Ot R10.9 UNSPECIFIED ABDOMINAL PAIN 11/17/2018 ZEUS BEAL MD Ot R11.2 NAUSEA WITH VOMITING, UNSPECIFIED 11/18/2018 ZEUS BEAL MD Ot R10.9 UNSPECIFIED ABDOMINAL PAIN 11/18/2018 ZEUS BEAL MD Ot R11.2 NAUSEA WITH VOMITING, UNSPECIFIED 11/19/2018 MARC OLMOS Ot E04.2 NONTOXIC MULTINODULAR GOITER Procedures There is no data. Results There is no data. Encounters ACCT No. Visit Date/Time Discharge Status Pt. Type Provider Facility Loc./Unit Complaint [id number] 09/16/2017 12:43:19 09/16/2017 23:59:59 [facility] Outpatient Michelle Dia [id number] 04/09/2017 14:41:33 04/09/2017 23:59:59 [facility] Outpatient Michelle Dia [id number] 03/13/2017 12:22:15 03/13/2017 23:59:59 [facility] Outpatient Herbert Nayak [id number] 02/04/2017 10:31:48 02/04/2017 23:59:59 [facility] Outpatient Izzy Winchester [id number] 01/07/2017 10:32:57 01/07/2017 23:59:59 [facility] Outpatient Michelle Dia [id number] 12/11/2016 15:10:47 12/11/2016 23:59:59 [facility] Arnold Pacheco [id number] 11/27/2016 15:47:39 11/27/2016 23:59:59 [facility] Outpatient Arnold Pacheco [id number] 11/05/2016 16:30:36 11/05/2016 23:59:59 [facility] Outpatient Michelle Dia [id number] 10/22/2016 16:23:43 10/22/2016 23:59:59 [facility] Outpatient Michelle Dia [id number] 08/08/2016 14:45:01 08/08/2016 23:59:59 [facility] Outpatient Herbert Nayak [id number] 03/07/2016 15:23:02 03/07/2016 23:59:59 [facility] Outpatient Jenniffer Grullon [id number] 11/18/2018 07:55:00 11/18/2018 23:59:59 [facility] Outpatient MARC OLMOS [facility] RAD ENLARGED THYROID [id number] 10/29/2018 14:09:00 10/29/2018 23:59:59 [facility] Outpatient EMIGDIO ROMERO, ZEUS Sanchez [facility] RAD FLANK PAIN X4 DAYS [id number] 12/01/2018 13:32:00 ACT Emergency HOMER UMANA [facility] ER STD TEST AND POSSIBLE UTI
--- OUTSIDE RECORDS SUMMARY | 2018-12-01 14:26 | XMS REPORT ---
Author Author Izzy Winchester Organization [facility] Address [address] [place], [place] [address] Care Team Providers Care Retail Zone Specialist Name Role Phone Izzy Winchester PCP Unavailable Michelle Dia Unavailable Unavailable Allergies [...] meals and at bedtime for 8 weeks Name Start Date Expiration Date SIG Comments [...] HC BMI BSA BMI Percentile O2 Sat(%) 02/04/2017 9:33:00 AM 94 mmHg 68 mmHg [...] Seasonal allergies Mar 07 2016 3:13PM Myalgia Feb 2016 2:38PM Nasal congestion Fe2016 2:38PM Sore throat Fe2016 2:38PM Tonsillitis Aug 08 2016 2:38PM Sinus [...] sports participation examination Feb 04 2017 9:45AM Payers Insurance Name Company Name Plan Name Plan Number Policy Number Policy Group Number Start Date [facility] [id number] N/A History of Encounters Visit Date Visit Type Provider 02/04/2017 Office visit Izzy Winchester BASKETBALLS AND FOOTBALLS REVERSER 01/07/2017 Office visit Michelle Dia MD 12/07/2016 [facility] Arnold Pacheco MD 11/27/2016 Office visit Arnold Pacheco MD 11/19/2016 Office visit Michelle Dia MD 11/05/2016 Office visit Michelle Dia MD 10/22/2016 Office visit Michelle Dia MD 08/08/2016 Office visit Herbert Nayak APRN 03/07/2016 Office visit Jenniffer Grullon BASKETBALLS AND FOOTBALLS REVERSER 11/23/2015 Office visit Izzy Winchester APRN
[2018-12-01 14:27] LABS: BACTERIA,URINE MODERATE /HPF; WBC,URINE 50-100 /HPF
[2018-12-01] MEDS ORDERED: CEPH-507 PO (14:42)
--- NOTE | 2018-12-01 14:43 | ED GU-Female ---
General Chief Complaint: - Urinary Stated Complaint: STD TEST AND POSSIBLE UTI Nursing Triage Note: PT ARRIVES WITH C/O BURNING AND PAIN WITH URINATION AND ABD PAIN. PT DENIES VAGINAL DISCHARGE. PT STATES THIS ALL BEGAN SATURDAY. PT CONCERN OF STD. PT DENIES N/V/D/FEVER. Nursing Sepsis Screen: No Definite Risk Source: patient Exam Limitations: no limitations History of Present Illness Date Seen by Provider: December 01, 2018 Time Seen by Provider: 13:30 Initial Comments 18 year old female who presents to the emergency room with complains of pain and burning with urination. She denies vaginal discharge. She request to be checked for STD's due to several partners. She denies symptoms or fevers. Modifying Factors: Worsens With Urinating Associated Symptoms: dysuria, urinary frequency Allergies and Home Medications Allergies Coded Allergies: No Known Drug Allergies (Unverified , 12/01/18) Home Medications Cephalexin 500 Mg Capsule, 500 MG PO TID Prescribed by: HOMER UMANA on 12/01/18 1442 Patient Home Medication List Home Medication List Reviewed: Yes Review of Systems Review of Systems Constitutional: see HPI; No chills, No fever Genitourinary: see HPI, burning, urgency All Other Systemes Reviewed Negative Unless Noted: Yes Past Ixgpagu-[id number]-Nnqlfb Hx Past Med/Social Hx: Reviewed Nursing Past Med/Soc Hx Patient Social History Recent Foreign Travel: No Contact w/Someone Who Travel: No Recent Infectious Disease Expo: Yes Physical Abuse: No Sexual Abuse: No Mistreated: No Fear: No Family Medical History Reviewed Nursing Family Hx Physical Exam Vital Signs Vital Signs - First Documented 12/01/18 13:37 Temp 97.6 Pulse 80 Resp 18 B/P (MAP) 116/74 (88) Pulse Ox 99 O2 Delivery Room Air Capillary Refill : Less Than 3 Seconds Height, Weight, BMI Height: 5'7.00" Weight: 125lbs. oz. 56.980820ba; BMI Method:Stated General Appearance: WD/WN, no apparent distress Cardiovascular: normal peripheral pulses, regular rate, rhythm, no edema, no gallop, no JVD, no murmur Respiratory: chest non-tender, lungs clear, normal breath sounds, no respiratory distress, no accessory muscle use, respiratory distress Gastrointestinal: normal bowel sounds, non tender, soft, no organomegaly, no pulsatile mass Extremities: normal capillary refill Neurologic/Psychiatric: alert, normal mood/affect, oriented x 3 Skin: normal color, warm/dry Progress/Results/Core Measures Suspected Sepsis Recent Fever Within 48 Hours: No Infection Criteria Present: Suspected New Infection New/Unexplained Altered Menta: No Sepsis Screen: No Definite Risk SIRS Temperature:97.6 Pulse: 80 Respiratory Rate: 18 Blood Pressure 116 /74 Mean: 88 Results/Orders Lab Results Laboratory Tests Test 12/01/18 13:41 Range/Units Urine Color YELLOW Urine Clarity SLIGHTLY CLOUDY Urine pH 5 5-9 Urine Specific [place] 1.020 1.016-1.022 Urine Protein 2+ H NEGATIVE Urine Glucose (UA) NEGATIVE NEGATIVE Urine Ketones NEGATIVE NEGATIVE Urine Nitrite NEGATIVE NEGATIVE Urine Bilirubin NEGATIVE NEGATIVE Urine Urobilinogen NORMAL NORMAL MG/DL Urine Leukocyte Esterase 3+ H NEGATIVE Urine RBC (Auto) 4+ H NEGATIVE Urine RBC 2-5 H /HPF Urine WBC 50-100 H /HPF Urine Squamous Epithelial Cells NONE /HPF Urine Crystals NONE /LPF Urine Bacteria MODERATE H /HPF Urine Casts NONE /LPF Urine Mucus NEGATIVE /LPF Urine Culture Indicated YES Micro Results Microbiology 12/01/18 Urine Culture - Preliminary, Resulted Escherichia coli Strep agalactiae Group B My Orders Orders - HOMER UAMNA Ua Culture If Indicated (12/01/18 13:33) Neis Leo Dna Urine Test (12/01/18 13:33) Chlamydia Trachomatis Urine (12/01/18 13:33) Urine Bedside (12/01/18 13:43) Urine Culture (12/01/18 13:41) Ceftriaxone For Im Use (Rocephin For Im (12/01/18 14:45) Lidocaine 1% Inj 20 Ml (Xylocaine 1% Inj (12/01/18 14:45) Vital Signs/I&O Capillary Refill : Less Than 3 Seconds Blood Pressure Mean: 88 Departure Impression Primary Impression: Urinary tract infection Disposition: 01 HOME, SELF-CARE Condition: Stable/Unchanged Departure-Patient Inst. Decision time for Depature: 14:41 Referrals: NO,LOCAL PHYSICIAN (PCP/Family) Primary Care Physician Patient Instructions: Urinary Tract Infection, Adult (DC) Add. Discharge Instructions: Take medications as directed. Be sure you are drinking plenty of clear liquids to help stay hydrated and to flush out your urinary tract. Follow-up with your primary care provider within 1 week for recheck. Return back to the emergency room for worsening symptoms or concerns as needed. All discharge instructions reviewed with patient and/or family. Voiced understanding. Scripts Cephalexin (Keflex) 500 Mg Capsule 500 MG PO TID for 7 Days, #21 CAP Prov: HOMER UMANA 12/01/18 HOMER UMANA December 01, 2018 14:42
[2018-12-01] MEDS ORDERED: LIDOCAINE 1% INJ 20 ML 20 ML VIAL INJ ONE (14:45)
[2018-12-01] MEDS ORDERED: cefTRIAXone 1,000 MG/2.86 ml vial (IM ONLY) IM SCH (14:45)
[2018-12-01 15:03] VITALS: BP 116/74
[2018-12-04] MEDS ORDERED: AZIT1PAC11 PO (11:30)
== END 2018-12-01 15:01 | disposition home or self-care (01) ==
LOC: EDUNIT# 13:31 → ER 13:32
DX: N39.0 Urinary tract infection, site not specified (principal)
CPT/HCPCS: 36415; 81000; 84703; 87077; 87088; 87186; 87491; 87591; 96372; 99284

== ENCOUNTER → 2018-12-25 | Outpatient (CLI) | payer OTHER ==
[~2018-12-25] MED LIST: AZIT1PAC11 PO; CEPH-507 PO
--- NOTE | 2018-12-25 09:44 | Diagnostic Imaging Report ---
PROCEDURE: CT neck soft tissue with contrast. TECHNIQUE: Multiple contiguous axial images were obtained through the neck after the administration of contrast. Auto Exposure Controls were utilized during the CT exam to meet ALARA standards for radiation dose reduction. INDICATION: Left anterior cervical lymphadenopathy for 2-3 months. COMPARISON: No prior studies are available for comparison. FINDINGS: The visualized intracranial structures are unremarkable. The posterior nasopharynx and oropharynx are unremarkable. Parapharyngeal fat planes are preserved. Epiglottis and larynx are unremarkable. No thyroid masses are seen. Submandibular and parotid glands appear to be symmetric bilaterally. There are minimally prominent lymph nodes in the neck bilaterally. Posterior cervical and jugulodigastric nodes are present bilaterally and appear to be fairly symmetric. Lymph node on the left at the level of the BB marker is approximately 11 mm in size. No fluid collections are identified. IMPRESSION: Mildly prominent lymph nodes bilaterally, likely reactive. No fluid collection or abscess is detected. Dictated by: Dictated on workstation # [id number]
== END ==
LOC: RAD 08:39
PROVIDERS: ATTEND Internal Medicine
DX: R59.0 Localized enlarged lymph nodes (principal)
CPT/HCPCS: 70491

== ENCOUNTER 2019-04-15 05:39 | Outpatient (CLI) | payer OTHER ==
[~2019-04-15] VITALS: Ht 170.2 cm; Wt 55.0 kg
[2019-04-15] MEDS ORDERED: FAMO20TA5 PO (13:04)
[2019-04-15] MEDS ORDERED: NORG1TAB14 PO (13:04)
== END 2019-04-15 13:13 | disposition home or self-care (01) ==
LOC: PREOP 05:39
PROVIDERS: ATTEND Obstetrics & Gynecology
DX: Z01.818 Encounter for other preprocedural examination (principal)